=== PATIENT | male | born 1955 | race Caucasian/White ===

== ENCOUNTER → 2024-11-04 | Outpatient (CLI) | payer MEDICARE, SELFPAY ==
[2024-11-04 16:25] LABS: Bacteria 0 SEEN /hpf (None Seen); Mucous, Urine 0 SEEN /hpf (<or=2+); Squamous Epithelial Cells - UA 0 SEEN /hpf (0-5); White Blood Cells 0 SEEN /hpf (0-5)
[2024-11-04 17:58] LABS: Absolute Lymphocyte Count 2.93 X10^3/uL (0.83-4.51); Absolute Neutrophil Count 4.1 X10^3/uL (2.0-7.7); Basophil# 0.09 X10^3/uL; Basophil% 1.1 % (0-1); Eosinophil# 0.26 X10^3/uL; Eosinophils% 3.1 % (0-5); Hematocrit 46.4 % (40-54); Hemoglobin 15.3 g/dL (13.0-16.5); Lymphocyte # 2.93 X10^3/ul (0.83-4.51); Lymphocyte % 35.3 % (19-41); Mean Corpuscular Hgb 30.4 pg (27.0-32.0); Mean Corpuscular Volume 92.2 fL (80-94); Mean Platelet Vol. 9.7 fl (6.2-12.0); Monocyte% 9.6 % (0-10); NRBC Flagged by Analyzer 0 % (0-5); Neutrophil # 4.11 X10^3/uL (2.7-7.7); Neutrophil % 49.6 % (47-70); Platelet Count 258 K/mm3 (150-450); RBC Distribution Width CV 12.5 % (11.6-14.6); RBC Distribution Width SD 42.6 fl (35.1-43.9); Red Blood Count 5.03 M/mm3 (4.6-6.2); White Blood Count 8.3 K/mm3 (4.4-11.0)
[2024-11-04 18:30] LABS: Color, Urine Yellow (Yellow); Glucose, Dipstick Normal (Normal); Ketone-Dipstick Negative (Negative); Leukocyte Esterase-Dipstick 25 /ul (Negative); Nitrite-Dipstick Negative (Negative); Occult Blood-Urine Negative /ul (Negative); Protein-Dipstick Negative (Negative); Urine Bilirubin Dipstick Negative (Negative); Urine Clarity Clear (Clear); Urine Urobilinogen Normal (Normal)
[2024-11-04 18:49] LABS: ALB/GLOB Ratio 1.1 RATIO (0.9-2.4); AST(SGOT) 18 U/L (15-37); Alanine Aminotransfer ALT/SGPT 27 U/L (16-61); Albumin, Serum 3.7 g/dL (3.2-5.0); Alkaline Phosphatase 89 U/L (45-117); Anion Gap 9 (5-15); BUN 16 mg/dL (7-18); BUN/Creat Ratio 17.2 RATIO (10-20); Calcium,Total 8.5 mg/dL (8.5-10.1); Chloride 107 mmol/L (98-107); Cholesterol 173 mg/dL (200); Creatinine, Serum 0.93 mg/dL (0.70-1.30); EST Glomerular Filtration Rate 86 mL/min (>60); Est Glom Filt Rate - Afr Amer 104 mL/min (>60); Globulin 3.5 g/dL (2.2-4.2); Glucose 90 mg/dL (74-106); High Density Lipoprotein 32 mg/dL; Potassium 4.2 mmol/L (3.5-5.1); Protein, Total 7.2 g/dL (6.4-8.2); Sodium Level 139 mmol/L (136-145); Triglycerides 245 mg/dL; Very Low Density Lipoprotein 49 mg/dL (5-40)
[2024-11-04 18:54] LABS: Red Blood Cells-Urine 0 SEEN /hpf (0-5)
== END | disposition home or self-care (01) ==
PROVIDERS: PCP Family Medicine; Referring Provider Family Medicine; Visit Provider Family Medicine
DX: Z12.5 Encounter for screening for malignant neoplasm of prostate (principal); F17.200 Nicotine dependence, unspecified, uncomplicated; E78.5 Hyperlipidemia, unspecified
CPT/HCPCS: 36415; 80053; 80061; 81001; 84153; 85025; G0103

== ENCOUNTER 2025-04-15 05:51 | Day surgery (SDC) | payer MEDICARE, SELFPAY ==
[2025-04-10 08:22] LABS: Hematocrit 49.2 % (40-54); Hemoglobin 16.6 g/dL (13.0-16.5); Mean Corp Hgb Conc 33.7 g/dL (32-36); Mean Corpuscular Volume 92.1 fL (80-94); Mean Platelet Vol. 9.5 fl (6.2-12.0); Platelet Count 220 K/mm3 (150-450); RBC Distribution Width CV 13.2 % (11.6-14.6); RBC Distribution Width SD 45.0 fl (35.1-43.9); Red Blood Count 5.34 M/mm3 (4.6-6.2); White Blood Count 8.0 K/mm3 (4.4-11.0)
[2025-04-15] VITALS (9 sets, daily range): BP systolic 117–129; BP diastolic 78–88; PULSE 87–94; RESP 16–20; TEMP 36.2–36.7; O2SAT 93–97; BMI 24.5
--- OUTSIDE RECORDS SUMMARY | 2025-04-15 05:56 | XMS RPT_ITS | CCD ---
Author Organization 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 Damaso Bunch Primary Care Provider Loco MCCRAY, Dr. Damaso Bunch Referring Provider [phone] Torsten MCCRAY, Dr. Patrick Crowe Attending Provider Patrick Sarmiento Attending Unavailable Damaso Adan Primary Care Unavailable Damaso Adan Referring Unavailable Patrick Sarmiento Referring Unavailable Damaso Adan Primary Care Unavailable Patrick Sarmiento Attending Unavailable Damaso Adan Primary Care Unavailable Damaso Adan Attending Unavailable Damaso Adan Referring Unavailable Medications Current Medications Medication Drug Class(es) Dates Sig (Normalized) Sig (Original) aspirin 81 mg oral tablet (1 source) Platelet Aggregation Inhibitor, Nonsteroidal Anti-inflammatory Drug Start: 04-03-2025 take 1 tablet by mouth every other day Aspirin 81 mg tablet Active 81 mg PO .qod April 03, 2025 12:00am Vitamin B Complex tablet (1 source) Start: 04-03-2025 Vitamin B Complex tablet Active 1 {tbl} PO daily April 03, 2025 12:00am Problems Active Problems Problem Classification Problem Date Documented Da te Episodic/Chronic Abdominal hernia (3 sources) Umbilical hernia; Translations: [Umbilical hernia without obstruction or gangrene] Onset: 04-03-2025 04-03-2025 Episodic Past or Other Problems Problem Classification Problem Date Documented Da te Episodic/Chronic Other screening for suspected conditions (not mental disorders or infectious disease) (1 source) Encounter for screening for malignant neoplasm of prostate; Translations: [Encounter for screening for malignant neoplasm of prostate] Onset: 11-19-2024 Episodic Results Test Name Value Interpretation Reference Range Facil ity CBC-Complete Blood Cnt No Di ffon 04-10-2025 Erythrocyte distribution width (RBC) [Ratio] 13.2 % Normal 11.6-14.6 [facility] Comment on above: Performed By: #### L 100.0500 #### [facility] [address] [place], [address] Hematocrit (Bld) [Volume fraction] 49.2 % Normal 40-54 [facility] Comment on above: Performed By: #### L 100.0500 #### [facility] [address] [place], [address] Hemoglobin (Bld) [Mass/Vol] 16.6 g/dL High 13.0-16.5 [facility] Comment on above: Performed By: #### L 100.0500 #### [facility] [address] [place], [address] MCH (RBC) [Entitic mass] 31.1 pg Normal 27.0-32.0 [facility] Comment on above: Performed By: #### L 100.0500 #### [facility] [address] [place], [address] MCHC (RBC) [Mass/Vol] 33.7 g/dL Normal 32-36 [facility] Comment on above: Performed By: #### L 100.0500 #### [facility] [address] [place], [address] MCV (RBC) [Entitic vol] 92.1 fL Normal 80-94 [facility] Comment on above: Performed By: #### L 100.0500 #### [facility] [address] [place], [address] Platelet mean volume (Bld) [Entitic vol] 9.5 fL Normal 6.2-12.0 [facility] Comment on above: Performed By: #### L 100.0500 #### [facility] [address] [place], [address] Platelets (Bld) [#/Vol] 220 10*3/uL Normal 150-450 [facility] Comment on above: Performed By: #### L 100.0500 #### [facility] [address] [place], [address] RBC (Bld) [#/Vol] 5.34 10*6/uL Normal 4.6-6.2 [facility] Comment on above: Performed By: #### L 100.0500 #### [facility] [address] [place], [address] RDW SD 45.0 fl High 35.1-43.9 [facility] Comment on above: Performed By: #### L 100.0500 #### [facility] [address] [place], [address] WBC (Bld) [#/Vol] 8.0 10*3/uL Normal 4.4-11.0 [facility] Comment on above: Performed By: #### L 100.0500 #### [facility] [address] [place], [address] Surgery Visit Reporton 04-03 Surgery Visit Report [facility] [address] [place] [address] OFFICE VISIT Date of Service: 04/03/25 MR#: [id number] Acct: [id number] Name: SHANTELL CROSS Rep #: [id number] : 1955 Provider: Dr. Patrick butler MD Age/Sex: 69/M Location: [facility] Status: Signed Intake Vital Signs 04/03/25 08:23 Height 5 ft 8 in Weight: 164 lb BMI 24.9 BP 118/87 H Blood Pressure Location Rt brachial Position Sitting Respiration 17 Pulse 79 Pulse Source Monitor Pulse Oximetry (%) 96 Oxygen Delivery Method room air Intake Visit Reasons: UMBILICAL HERNIA Chief Complaint: umbilical hernia Is patient in pain?: Yes (ache at hernia site) Allergies No Known Allergies Allergy (Verified 04/03/25 08:24) Medications ???Medication ???Instructions ???Recorded ???Confirmed ???Type aspirin 81 mg tablet 81 mg PO .qod 04/03/25 04/03/25 Hi story vitamin B complex 1 tab PO QDAY 04/03/25 04/03/25 Hi story Have you fallen in the past year?: No PFSH Family History (Updated 04/03/25 @ 08:22 by Daija Burger) Father Hypertension Social History (Updated 04/03/25 @ 08:23 by Daija Burger) Smoking Status: Current every day smoker HPI HPI HPI: The patient is a 69-year-old male who is presenting today for evaluation of umbilical hernia. He states he has had this hernia for probably upwards of 10 years. He states that this is slowly increasing in size and causing him increasing discomfort. 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 He presents today to have this evaluated and to discuss repair ROS General General: No weight change, appetite, fatigue, colon cancer, breast cancer or weakness HEENT HEENT: No difficulty swallowing, eye injury, eye surgery, swollen glands or hoarseness Endo Endocrine: No thyroid disease, diabetes mellitus, thyroid cancer, Hair loss, heat intolerance or cold intolerance Skin Skin: No rash or changing moles Musc Musculoskeletal: No back problems, arthritis, rheumatoid arthritis, gout or joint pain Cardio Cardiovascular: No murmur, pacemaker, heart disease, atrial fibrillation, high blood pressure, heart attack, heart stent, palpitations, shortness of breath with exertion or chest pain Psych Psychiatric: No depression, anxiety or hearing voices Resp Respiratory: No shortness of breath, No sleep apnea, No cough, No COPD, No asthma, No emphysema and No wheezing Gastro Gastrointestinal: Yes abdominal pain, No nausea or vomiting, No diarrhea, No constipation, No blood in stool, No acid reflux, No hemorrhoids, No ulcers, No gallbladder problem and No black,tarry s tools Heri Hematologic: No blood thinners, No blood disorders, No bleeding, No anemia and No blood clots Neuro Neurologic: No system reviewed and no additional complaints, except as documented, No as per HPI, No abnormal gait, No abnormal hearing, No abnormal movements, No abnormal speech, No behavioral changes, No burning sensations, No confusion, No convulsions, No disequilibrium, No dizziness, No localized weakness, No frequent falls, No headache(s), No lack of coordination, No loss of vision, No memory loss, No numbness, No other visual disturbances, No radicular pain, No restless legs, No sensory deficit, No syncope, No tingling, No tremor(s), No weakness and No other Exam Const General: cooperative, healthy appearing and comfortable [facility] Head: normal to inspection Eyes General: appearance normal, both eyes and all related structures Neck Neck: normal visual inspection Chest Chest palpation inspection: normal inspection of the chest Resp Effort Inspection: normal respiratory effort GI Other: Examination of the abdomen reveals a small to medium size umbilical hernia. This seems to be fat- containing. It is not fully reducible and so I cannot really determine exact fascial defect size. I suspect it is probably less than 2 cm but again I cannot fully assess due to the nonreducible nature of it. No surrounding erythema or cellulitis. No evidence to suggest strangulation/incarc eration Assessment and Plan Assessment and Plan (1) Umbilical hernia: Status: Acute Plan: The patient is a 69-year-old male with an umbilical hernia. I have offered him an open repair with possible mesh based on the fascial defect size. We discussed the details of the planned procedure including risks benefits and alternatives. He wishes to proceed. This will be scheduled in a timely manner. Coding Level of Care Code Off vis,new,level 4 Diagnoses Umbilical hernia K42.9 Clinical Quality Measures Falls Risk Screening/Assistive Devices Have you fallen in the past year?: No 04/03/25 0900 Date (more content not included)... Normal [facility] CBC W/Diff, Automatedon 10-25 Absolute Lymph 2.93 X10 3/uL Normal 0.83-4.51 [facility] Comment on above: Order Comment: Order Date: 11/04/24 Order Info: 0184-1 - CBCD Performed By: #### L 500.6010, L100.0100, L501.9910, L500.4050 #### [facility] [address] [place], [address] Absolute Neut 4.1 X10 3/uL Normal 2.0-7.7 [facility] Comment on above: Order Comment: Order Date: 11/04/24 Order Info: 0184-1 - CBCD Performed By: #### L 500.4100, L100.0100, L501.9910, L500.4050 #### [facility] [address] [place], [address] Basophils/100 WBC (Bld) 1.1 % High 0-1 [facility] Comment on above: Order Comment: Order Date: 11/04/24 Order Info: 0184-1 - CBCD Performed By: #### L 500.4100, L100.0100, L501.9910, L500.4050 #### [facility] [address] [place], [address] Eosinophils/100 WBC (Bld) 3.1 % Normal 0-5 [facility] Comment on above: Order Comment: Order Date: 11/04/24 Order Info: 0184-1 - CBCD Performed By: #### L 500.4100, L100.0100, L501.9910, L500.4050 #### [facility] [address] [place], [address] Erythrocyte distribution width (RBC) [Ratio] 12.5 % Normal 11.6-14.6 [facility] Comment on above: Order Comment: Order Date: 11/04/24 Order Info: 0184-1 - CBCD Performed By: #### L 500.4100, L100.0100, L501.9910, L500.4050 #### [facility] [address] [place], [address] Hematocrit (Bld) [Volume fraction] 46.4 % Normal 40-54 [facility] Comment on above: Order Comment: Order Date: 11/04/24 Order Info: 0184-1 - CBCD Performed By: #### L 500.4100, L100.0100, L501.9910, L500.4050 #### [facility] [address] [place], [address] Hemoglobin (Bld) [Mass/Vol] 15.3 g/dL Normal 13.0-16.5 [facility] Comment on above: Order Comment: Order Date: 11/04/24 Order Info: 0184-1 - CBCD Performed By: #### L 500.4100, L100.0100, L501.9910, L500.4050 #### [facility] [address] [place], [address] IG% 1.300 High 0.0-0.9 [facility] Comment on above: Order Comment: Order Date: 11/04/24 Order Info: 0184- - CBCD Result Comment: IG% - Immature Granulocytes (promyelocytes, myelocytes and metamyelocytes) > 1% indicates that a LEFT SHIFT is Present. Performed By: #### L 500.4100, L100.0100, L501.9910, L500.4050 #### [facility] [address] [place], [address] Lymphocytes/100 WBC (Bld) 35.3 % Normal 19-41 [facility] Comment on above: Order Comment: Order Date: 11/04/24 Order Info: 0184-1 - CBCD Performed By: #### L 500.4100, L100.0100, L501.9910, L500.4050 #### [facility] [address] [place], [address] MCH (RBC) [Entitic mass] 30.4 pg Normal 27.0-32.0 [facility] Comment on above: Order Comment: Order Date: 11/04/24 Order Info: 0184-1 - CBCD Performed By: #### L 500.4100, L100.0100, L501.9910, L500.4050 #### [facility] [address] [place], [address] MCHC (RBC) [Mass/Vol] 33.0 g/dL Normal 32-36 [facility] Comment on above: Order Comment: Order Date: 11/04/24 Order Info: 0184-1 - CBCD Performed By: #### L 500.4100, L100.0100, L501.9910, L500.4050 #### [facility] [address] [place], [address] MCV (RBC) [Entitic vol] 92.2 fL Normal 80-94 [facility] Comment on above: Order Comment: Order Date: 11/04/24 Order Info: 0184-1 - CBCD Performed By: #### L 500.4100, L100.0100, L501.9910, L500.4050 #### [facility] [address] [place], [address] Monocytes/100 WBC (Bld) 9.6 % Normal 0-10 [facility] Comment on above: Order Comment: Order Date: 11/04/24 Order Info: 0184-1 - CBCD Performed By: #### L 500.4100, L100.0100, L501.9910, L500.4050 #### [facility] [address] [place], [address] Neutrophils/100 WBC (Bld) 49.6 % Normal 47-70 [facility] Comment on above: Order Comment: Order Date: 11/04/24 Order Info: 0184-1 - CBCD Performed By: #### L 500.4100, L100.0100, L501.9910, L500.4050 #### [facility] [address] [place], [address] Nucleated RBC (Bld) [#/Vol] 0 10*3/uL Normal 0-5 [facility] Comment on above: Order Comment: Order Date: 11/04/24 Order Info: 0184-1 - CBCD Performed By: #### L 500.4100, L100.0100, L501.9910, L500.4050 #### [facility] [address] [place], [address] Platelet mean volume (Bld) [Entitic vol] 9.7 fL Normal 6.2-12.0 [facility] Comment on above: Order Comment: Order Date: 11/04/24 Order Info: 0184-1 - CBCD Performed By: #### L 500.4100, L100.0100, L501.9910, L500.4050 #### [facility] [address] [place], [address] Platelets (Bld) [#/Vol] 258 10*3/uL Normal 150-450 [facility] Comment on above: Order Comment: Order Date: 11/04/24 Order Info: 0184- - CBCD Performed By: #### L 500.4100, L100.0100, L501.9910, L500.4050 #### [facility] [address] [place], [address] RBC (Bld) [#/Vol] 5.03 10*6/uL Normal 4.6-6.2 [facility] Comment on above: Order Comment: Order Date: 11/04/24 Order Info: 0184- - CBCD Performed By: #### L 500.4100, L100.0100, L501.9910, L500.4050 #### [facility] [address] [place], [address] RDW SD 42.6 fl Normal 35.1-43.9 [facility] Comment on above: Order Comment: Order Date: 11/04/24 Order Info: 0184-1 - CBCD Performed By: #### L 500.4100, L100.0100, L501.9910, L500.4050 #### [facility] [address] [place], [address] WBC (Bld) [#/Vol] 8.3 10*3/uL Normal 4.4-11.0 [facility] Comment on above: Order Comment: Order Date: 11/04/24 Order Info: 0184-1 - CBCD Performed By: #### L 500.4100, L100.0100, L501.9910, L500.4050 #### [facility] [address] [place], [address] Comprehensive Metabolic Prof ilon 11-04-2024 Albumin [Mass/Vol] 3.7 g/dL Normal 3.2-5.0 [facility] Comment on above: Order Comment: Order Date: 11/04/24 Order Info: [id number] - CMP Order Info: [id number] - LIPID Order Info: [id number] - PSA Performed By: #### L 500.4100, L100.0100, L501.9910, L500.4050 #### [facility] [address] [place], [address] Albumin/Globulin [Mass ratio] 1.1 {ratio} Normal 0.9-2.4 [facility] Comment on above: Order Comment: Order Date: 11/04/24 Order Info: [id number] - CMP Order Info: [id number] - LIPID Order Info: [id number] - PSA Performed By: #### L 500.4100, L100.0100, L501.9910, L500.4050 #### [facility] [address] [place], [address] ALK P 89 U/L Normal 45-117 [facility] Comment on above: Order Comment: Order Date: 11/04/24 Order Info: [id number] - CMP Order Info: [id number] - LIPID Order Info: [id number] - PSA Performed By: #### L 500.4100, L100.0100, L501.9910, L500.4050 #### [facility] [address] [place], [address] ALT [Catalytic activity/Vol] 27 U/L Normal 16-61 [facility] Comment on above: Order Comment: Order Date: 11/04/24 Order Info: [id number] - CMP Order Info: - LIPID Order Info: [id number] - PSA Performed By: #### L 500.4100, L100.0100, L501.9910, L500.4050 #### [facility] [address] [place], [address] AST [Catalytic activity/Vol] 18 U/L Normal 15-37 [facility] Comment on above: Order Comment: Order Date: 11/04/24 Order Info: [id number] - CMP Order Info: - LIPID Order Info: [id number] - PSA Performed By: #### L 500.4100, L100.0100, L501.9910, L500.4050 #### [facility] [address] [place], [address] Bilirubin [Mass/Vol] 0.40 mg/dL Normal 0.20-1.00 [facility] Comment on above: Order Comment: Order Date: 11/04/24 Order Info: [id number] - CMP Order Info: - LIPID Order Info: [id number] - PSA Result Comment: For patients on eltrombopag therapy, use of Dimension [place] TBIL is not recommended. Performed By: #### L 500.4100, L100.0100, L501.9910, L500.4050 #### [facility] [address] [place], [address] BUN/CRE 17.2 RATIO Normal 10-20 [facility] Comment on above: Order Comment: Order Date: 11/04/24 Order Info: [id number] - CMP Order Info: - LIPID Order Info: [id number] - PSA Performed By: #### L 500.4100, L100.0100, L501.9910, L500.4050 #### [facility] [address] [place], [address] CA,Total 8.5 mg/dL Normal 8.5-10.1 [facility] Comment on above: Order Comment: Order Date: 11/04/24 Order Info: 0786- - CMP Order Info: [id number] - LIPID Order Info: [id number] - PSA Performed By: #### L 500.4100, L100.0100, L501.9910, L500.4050 #### [facility] [address] [place], [address] Chloride [Moles/Vol] 107 mmol/L Normal 98-107 [facility] Comment on above: Order Comment: Order Date: 11/04/24 Order Info: 0786 - CMP Order Info: [id number] - LIPID Order Info: [id number] - PSA Performed By: #### L 500.4100, L100.0100, L501.9910, L500.4050 #### [facility] [address] [place], [address] CO2 [Moles/Vol] 23.0 mmol/L Normal 21.0-32.0 [facility] Comment on above: Order Comment: Order Date: 11/04/24 Order Info: 0786 - CMP Order Info: [id number] - LIPID Order Info: [id number] - PSA Performed By: #### L 500.4100, L100.0100, L501.9910, L500.4050 #### [facility] [address] [place], [address] Creatinine [Mass/Vol] 0.93 mg/dL Normal 0.70-1.30 [facility] Comment on above: Order Comment: Order Date: 11/04/24 Order Info: 0786- - CMP Order Info: [id number] - LIPID Order Info: [id number] - PSA Result Comment: The validity of the calculated GFR GFRAA in patients over 70 years has not been determined. Clinical correlation is essential. Performed By: #### L 500.4100, L100.0100, L501.9910, L500.4050 #### [facility] [address] [place], [address] EST GFR - AA 104 mL/min Normal >60 [facility] Comment on above: Order Comment: Order Date: 11/04/24 Order Info: [id number] - CMP Order Info: - LIPID Order Info: [id number] - PSA Result Comment: Afri can [place] GFR Calc Performed By: #### L 500.4100, L100.0100, L501.9910, L500.4050 #### [facility] [address] [place], [address] GAP 9 Normal 5-15 [facility] Comment on above: Order Comment: Order Date: 11/04/24 Order Info: [id number] - CMP Order Info: - LIPID Order Info: [id number] - PSA Performed By: #### L 500.4100, L100.0100, L501.9910, L500.4050 #### [facility] [address] [place], [address] GFR/1.73 sq M.predicted among non-blacks MDRD (S/P/Bld) [Vol rate/Area] 86 mL/min/{1.73_m2} Normal >60 [facility] Comment on above: Order Comment: Order Date: 11/04/24 Order Info: [id number] - CMP Order Info: - LIPID Order Info: [id number] - PSA Result Comment: Non- GFR Calc Performed By: #### L 500.4100, L100.0100, L501.9910, L500.4050 #### [facility] [address] [place], [address] Globulin (S) [Mass/Vol] 3.5 g/dL Normal 2.2-4.2 [facility] Comment on above: Order Comment: Order Date: 11/04/24 Order Info: [id number] - CMP Order Info: - LIPID Order Info: [id number] - PSA Performed By: #### L 500.4100, L100.0100, L501.9910, L500.4050 #### [facility] [address] [place], [address] Glucose [Mass/Vol] 90 mg/dL Normal 74-106 [facility] Comment on above: Order Comment: Order Date: 11/04/24 Order Info: [id number] - CMP Order Info: [id number] - LIPID Order Info: [id number] - PSA Performed By: #### L 500.4100, L100.0100, L501.9910, L500.4050 #### [facility] [address] [place], [address] Potassium [Moles/Vol] 4.2 mmol/L Normal 3.5-5.1 [facility] Comment on above: Order Comment: Order Date: 11/04/24 Order Info: [id number] - CMP Order Info: [id number] - LIPID Order Info: [id number] - PSA Performed By: #### L 500.4100, L100.0100, L501.9910, L500.4050 #### [facility] [address] [place], [address] Sodium [Moles/Vol] 139 mmol/L Normal 136-145 [facility] Comment on above: Order Comment: Order Date: 11/04/24 Order Info: 0786 - CMP Order Info: [id number] - LIPID Order Info: [id number] - PSA Performed By: #### L 500.4100, L100.0100, L501.9910, L500.4050 #### [facility] [address] [place], [address] T PROT 7.2 g/dL Normal 6.4-8.2 [facility] Comment on above: Order Comment: Order Date: 11/04/24 Order Info: 0786- - CMP Order Info: [id number] - LIPID Order Info: [id number] - PSA Performed By: #### L 500.4100, L100.0100, L501.9910, L500.4050 #### [facility] [address] [place], [address] Urea nitrogen [Mass/Vol] 16 mg/dL Normal 7-18 [facility] Comment on above: Order Comment: Order Date: 11/04/24 Order Info: [id number] - CMP Order Info: [id number] - LIPID Order Info: [id number] - PSA Performed By: #### L 500.4100, L100.0100, L501.9910, L500.4050 #### [facility] [address] [place], [address] Lipid Profileon 11-04-2024 Cholesterol [Mass/Vol] 173 mg/dL Normal 200 [facility] Comment on above: Order Comment: Order Date: 11/04/24 Order Info: 0786 - CMP Order Info: [id number] - LIPID Order Info: [id number] - PSA Result Comment: <200 mg/dL Desirable 200-240 mg/dL Borderline >240 mg/dL High Risk Performed By: #### L 500.4100, L100.0100, L501.9910, L500.4050 #### [facility] [address] [place], [address] Cholesterol in HDL [Mass/Vol] 32 mg/dL Low [facility] Comment on above: Order Comment: Order Date: 11/04/24 Order Info: 0786- - CMP Order Info: [id number] - LIPID Order Info: [id number] - PSA Result Comment: The drugs N-Acetylcysteine and Metamizole may falsely depress this assay. Reference Range HDL <40 mg/dL Low HDL Cholesterol HDL >or= 60 mg/dL High HDL Cholesterol Performed By: #### L 500.4100, L100.0100, L501.9910, L500.4050 #### [facility] [address] [place], [address] Cholesterol in LDL [Mass/Vol] 92 mg/dL Normal 0-130 [facility] Comment on above: Order Comment: Order Date: 11/04/24 Order Info: [id number] - CMP Order Info: - LIPID Order Info: [id number] - PSA Performed By: #### L 500.4100, L100.0100, L501.9910, L500.4050 #### [facility] [address] [place], [address] Cholesterol in VLDL [Mass/Vol] 49 mg/dL High 5-40 [facility] Comment on above: Order Comment: Order Date: 11/04/24 Order Info: [id number] - CMP Order Info: - LIPID Order Info: [id number] - PSA Performed By: #### L 500.4100, L100.0100, L501.9910, L500.4050 #### [facility] [address] [place], [address] Triglyceride [Mass/Vol] 245 mg/dL High [facility] Comment on above: Order Comment: Order Date: 11/04/24 Order Info: [id number] - CMP Order Info: - LIPID Order Info: [id number] - PSA Result Comment: The drugs N-Acetylcysteine and Metamizole may falsely depress this assay. Serum Triglycerides Reference Interval Normal <150 mg/dL Borderline high 150 - 199 mg/dL High 200 - 499 mg/dL Very High > or = 500 mg/dL Performed By: #### L 500.4100, L100.0100, L501.9910, L500.4050 #### [facility] [address] [place], [address] PSA,Total - Annual Screenon 11-04-2024 PSA,TOT SCREEN 34.00 ng/mL High 0.00-4.00 [facility] Comment on above: Order Comment: Order Date: 11/04/24 Order Info: 07 - CMP Order Info: - LIPID Order Info: [id number] - PSA Result Comment: This test was performed using the TPSA assay method for the [employer] chemistry system. Values obtained with different assay methods cannot be used interchangably. When changing PSA assays in the course of monitoring a patient, additional sequential testing should be carried out to confirm baseline values. Performed By: #### L 500.4100, L100.0100, L501.9910, L500.4050 #### [facility] [address] [place], [address] Urinalysis, Completeon 11-04 RBC 0 SEEN Normal 0-5 [facility] Comment on above: Order Comment: CLEAN CATCH Performed By: #### L [id number] #### [facility] [address] [place], [address] BACTERIA 0 SEEN Normal None [facility]en [facility] Comment on above: Order Comment: CLEAN CATCH Performed By: #### L [id number] #### [facility] [address] [place], [address] EPI,SQUAMOUS 0 SEEN Normal 0-5 [facility] Comment on above: Order Comment: CLEAN CATCH Performed By: #### L [id number] #### [facility] [address] [place], [address] Mucus Ql (Urine sed) 0 SEEN Normal [facility] Comment on above: Order Comment: CLEAN CATCH Performed By: #### L [id number] #### [facility] [address] [place], [address] WBC 0 SEEN Normal 0-5 [facility] Comment on above: Order Comment: CLEAN CATCH Performed By: #### L [id number] #### [facility] [address] [place], [address] Vital Signs Date Time Vital Sign Value Performing Clinician Andrews sutton 04-03-2025 08:23-0400 Body height 172.[address] Damaso Adan MD Work Phone: [facility] 04-03-2025 08:23-0400 Body mass index (BMI) [Ratio] 24.9 kg/m2 Dr. Damaso Adan MD Work Phone: [facility] 04-03-2025 08:23-0400 Body weight 74.[address] Damaso Adan MD Work Phone: [facility] 04-03-2025 08:23-0400 Diastolic blood pressure 87 mm[Hg] Dr. Damaso Adan MD Work Phone: [facility] 04-03-2025 08:23-0400 Heart rate 79 /min Dr. Damaso Adan MD Work Phone: [facility] 04-03-2025 08:23-0400 Respiratory rate 17 /min Dr. Damaso Adan MD Work Phone: [facility] 04-03-2025 08:23-0400 SaO2% (BldA) [Mass fraction] 96 % Dr. Damaso Adan MD Work Phone: [facility] 04-03-2025 08:23-0400 Systolic blood pressure 118 mm[Hg] Dr. Damaso Adan MD Work Phone: [facility] Encounters Encounter Date Encounter Type Care Provider Facility Start: 04-15-2025 [facility] Start: 04-10-2025 Encounter for other preprocedural examination Patrick Sebastien [facility] Start: 04-03-2025 End: 04-03-[address] Patrick Sarmiento MD -[facility] Work Phone: Start: 04-03-2025 End: 04-03-[address] Damaso Adan MD Work Phone: -[facility] Start: 11-04-2024 End: 11-04-2024 ambulatory Damaso Adan Facility[facility] Payers Date Payer Category Payer Medicare [id number] 2024 Self-pay Unknown [id number] Unknown [id number] Unknown [id number] Unknown [id number] Social History Date Type Detail Facility Start: 04-03-2025 Tobacco smoking stat us [facility] Smokes tobacco daily (finding) [facility] Start: 1955 Sex Assigned At Male [facility] Progress note 04-03-2025 Note Date & Type Note Facility 04-03-2025 Progress note [facility] Progress note 04-03-2025 Note Date & Type Note Facility 04-03-2025 Progress note Note Date/Time April 03, 2025 9:00 am [facility] [address] [place] [address] OFFICE VISIT Date of Service: 04/03/25 MR#: [id number] Acct: [id number] Name: SHANTELL CROSS Rep #: [id number] : 1955 Provider: Dr. Vasu Sarmiento MD Age/Sex: 69/M Location: [facility] Status: Signed Intake Vital Signs 04/03/25 08:23 Height 5 ft 8 in Weight: 164 lb BMI 24.9 BP 118/87 H Blood Pressure Location Rt brachial Position Sitting Respiration 17 Pulse 79 Pulse Source Monitor Pulse Oximetry (%) 96 Oxygen Delivery Method room air Intake Visit Reasons: UMBILICAL HERNIA Chief Complaint: umbilical hernia Is patient in pain?: Yes (ache at hernia site) Allergies No Known Allergies Allergy (Verified 04/03/25 08:24) Medications ?Medication ?Instructions ?Recorded ?Confirmed ?Type aspirin 81 mg tablet 81 mg PO .qod 04/03/2504/03 History vitamin B complex 1 tab PO QDAY 04/03/2504/03 History Have you fallen in the past year?: No PFSH Family History (Updated 04/03/25 @ 08:22 by Daija Burger) Father Hypertension Social History (Updated 04/03/25 @ 08:23 by Daija Burger) Smoking Status: Current every day smoker HPI HPI HPI: The patient is a 69-year-old male who is presenting today for evaluation of umbilical hernia. He states he has had this hernia for probably upwards of 10 years. He states that this is slowly increasing in size and causing him increasing discomfort. 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 He presents today to have this evaluated and to discuss repair ROS General General: No weight change, appetite, fatigue, colon cancer, breast cancer or weakness HEENT HEENT: No difficulty swallowing, eye injury, eye surgery, swollen glands or hoarseness Endo Endocrine: No thyroid disease, diabetes mellitus, thyroid cancer, Hair loss, heat intolerance or cold intolerance Skin Skin: No rash or changing moles Musc Musculoskeletal: No back problems, arthritis, rheumatoid arthritis, gout or joint pain Cardio Cardiovascular: No murmur, pacemaker, heart disease, atrial fibrillation, high blood pressure, heart attack, heart stent, palpitations, shortness of breath with exertion or chest pain Psych Psychiatric: No depression, anxiety or hearing voices Resp Respiratory: No shortness of breath, No sleep apnea, No cough, No COPD, No asthma, No emphysema and No wheezing Gastro Gastrointestinal: Yes abdominal pain, No nausea or vomiting, No diarrhea, No constipation, No blood in stool, No acid reflux, No hemorrhoids, No ulcers, No gallbladder problem and No black,tarry stools Heri Hematologic: No blood thinners, No blood disorders, No bleeding, No anemia and No blood clots Neuro Neurologic: No system reviewed and no additional complaints, except as documented, No as per HPI, No abnormal gait, No abnormal hearing, No abnormal movements, No abnormal speech, No behavioral changes, No burning sensations, No confusion, No convulsions, No disequilibrium, No dizziness, No localized weakness, No frequent falls, No headache(s), No lack of coordination, No loss ofvision, No memory loss, No numbness, No other visual disturbances, No radicular pain, No restless legs, No sensory deficit, No syncope, No tingling, No tremor(s), No weakness and No other Exam Const General: cooperative, healthy appearing and comfortable [facility] Head: normal to inspection Eyes General: appearance normal, both eyes and all related structures Neck Neck: normal visual inspection Chest Chest palpation & inspection: normal inspection of the chest Resp Effort & Inspection: normal respiratory effort GI Other: Examination of the abdomen reveals a small to medium size umbilical hernia. This seems to be fat-containing. It is not fully reducible and so I cannot really determine exact fascial defect size. I suspect it is probably less than 2 cm but again I cannot fully assess due to the nonreducible nature of it. No surrounding erythema or cellulitis. No evidence to suggest strangulation/incarceration Assessment and Plan Assessment and Plan (1) Umbilical hernia: Status: Acute Plan: The patient is a 69-year-old male with an umbilical hernia. I have offered him an open repair with possible mesh based on the fascial defect size. We discussed the details of the planned procedure including risks benefits and alternatives. He wishes to proceed. This will be scheduled in a timely manner. Coding Level of Care Code Off vis,new,level 4 Diagnoses Umbilical hernia K42.9 Clinical Quality Measures Falls Risk Screening/Assistive Devices Have you fallen in the past year?: No 04/03/25 0900 <Electronically signed by Patrick song MD> Date _ Patrick Sarmiento MD Cosigner Signature: Date (if applicable) CC: Dr. Damaso Adan MD ~ [facility] Work Phone: Evaluation note Note Date & Type Note Facility Evaluation note Diagnosis Onset Date Resolution Umbilical hernia acute March 8:12am [facility] Work Phone: Reason for referral (narrative) Note Date & Type Note Facility Reason for referral (narrative) No reason for referral information available [facility] Work Phone: Chief Complaint and Reason for Visit Chief Complaint Admit Date UMBILICAL HERNIA April 03, 2025 8:12 am Reason for Visit Admit Date Umbilical hernia April 03, 2025 8:12 am Summary Purpose Family History No Family History Records Found Advance Directives No Advanced Directives Records Found Additional Source Comments Care Teams (unrecognized sec tion and content) Team Status: Active Member Role/Relationship Status Dates Dr. Damaso Adan MD Primary Care Provider Active Team Status: Inactive Member Role/Relationship Status Dates Dr. Damaso Adan MD Primary Care Provider Active Start: April 03, 2025 End: April 03, 2025 Dr. Damaso Adan MD Referring Provider Active Start: April 03, 2025 End: April 03, 2025 Dr. Patrick Sarmiento MD Attending Provider Active Start: April 03, 2025 End: April 03, 2025 Goals (unrecognized section and content) Goals may be documented in a n alternate section (unrecognized sect ion and content) No Status Records Found INFORMATION SOURCE (unrecogn ized section and content) DATE CREATED AUTHOR 04/13/2025 [facility] FOR RECORDS PERTAINING TO PATIENTS WHO ARE OR HAVE BEEN ENROLLED IN A CHEMICAL DEPENDENCY/SUBSTANCEABUSE PROGRAM, SOME INFORMATION MAY BE OMITTED. This clinical summary was aggregated from multiple sources. Caution should be exercised in using it in the provision of clinical care. This summary normalizes information from multiple sources, and as a consequence, information in this document may materially change the coding, format and clinical context of patient data. In addition, data may be omitted in some cases. CLINICAL DECISIONS SHOULD BE BASED ON THE PRIMARY CLINICAL RECORDS. [employer] provides no warranty or guarantee of the accuracy or completeness of information in this document.
[2025-04-15] MEDS: Lactated Ringers 1,000 ML 15 ML IV (06:37)
--- NOTE | 2025-04-15 07:21 | PCM.PRE.AN2 ---
ASA Classification* ASA Classification ASA Classification: 2 Assessment & Plan Anesthesia* Anesthesia Assessment Anesthesia Assessment: Discussed sedation and/or anesthesia options, risks, benefits, and alternatives with patient/parents/legal guardian/POA. Questions invited. The patient/parents/legal guardian/POA seems to understand and agrees to proceed with anesthesia plan. Reviewed the physical assessment, medical history, allergy history and patient home medications list prior to surgery/procedure/anesthetic and documented any changes. Performed airway and anesthesia risk assessments. Anesthesia Type Anesthesia Type: General History Source History Obtained from:: Patient and Chart Anesthesia Focused Assessment* Temperature: 98.0 F Pulse Rate: 87 Blood Pressure: 124/82 Respiratory Rate: 16 Pulse Ox: 97 Oxygen Delivery Method: Room Air Airway Assessment Mouth opens: >3 cm Mallampati Score: II Teeth Condition: Partial (Upper partials out. Rest are tight.) Neck Range of motion (ROM): Full ROM Labs Anesthesia Preop lab: CBC WBC 8.0 K/mm3 (4.4-11.0) 04/10/25 07:33 04/10/25 RBC 5.34 M/mm3 (4.6-6.2) 04/10/25 07:33 04/10/25 Hgb 16.6 g/dL (13.0-16.5) H 04/10/25 07:33 04/10/25 Hct 49.2 % (40-54) 04/10/25 07:33 04/10/25 Plt Count 220 K/mm3 (150-450) 04/10/25 07:33 04/10/25 CHEMISTRY Potassium 4.2 mmol/L (3.5-5.1) 11/04/24 15:54 11/04/24 Sodium 139 mmol/L (136-145) 11/04/24 15:54 11/04/24 BUN 16 mg/dL (7-18) 11/04/24 15:54 11/04/24 Creatinine 0.93 mg/dL (0.70-1.30) 11/04/24 15:54 11/04/24 Glucose 90 mg/dL (74-106) 11/04/24 15:54 11/04/24 COAG Pre-Assessment Diagnosis/Proposed Procedure Planned Operative Procedure(s): OPEN UMBILICAL HERNIA REPAIR POSS MESH Anesthesia History 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 When Was Last Pacemaker Check QUESTION #4 FULL TEXT: You/Your Family Experience fever (hyperthermia) with Anesthesia Last Oral Intake Last Oral intake: Last Oral Intake NPO since 18:00 04/15/25 06:25 Meds taken in AM with sips of No 04/15/25 06:25 water? Meds patient instructed to take am of surgery PONV PONV - turpentine farmer: PONV - turpentine farmer Female No 04/08/25 10:17 HX of Motion Sickness No 04/08/25 10:17 HX of N/V After Surgery No 04/08/25 10:17 Non-Smoker No 04/08/25 10:17 Duration of Surgery greater Yes 04/08/25 10:17 than 60 minutes Number of Risk Factors 1 04/08/25 10:17 PONV Score Low Risk 04/08/25 10:17 Height & Weight Height & Weight: Anesthesia: Height & Weight Height 5 ft 8 in 04/15/25 06:25 Weight: 73 kg 04/15/25 06:25 Body Mass Index (BMI) 24.5 04/15/25 06:25 Respiratory Assessment Respiratory Assessment - turpentine farmer: Respiratory Tract Infection Hx - turpentine farmer Hx Respiratory Tract Infection No 04/08/25 10:17 STOP Sleep Apnea STOP Sleep Apnea - turpentine farmer: STOP Sleep Apnea - turpentine farmer Hx Hypertension No 04/08/25 10:17 Hx Sleep Apnea No 04/08/25 10:17 CPAP BIPAP Do you snore loudly (louder Yes 04/08/25 10:17 than talking or can be heard Do you often feel tired/ No 04/08/25 10:17 fatigued/ sleepy during daytime? Has anyone observed you stop No 04/08/25 10:17 breathing during sleep? STOP Results Negative 04/08/25 10:17 QUESTION #5 FULL TEXT : Do you snore loudly (louder than talking or can be heard through closed doors)? 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 Specify any problems Hx of Preganancy in last 3 N/A 04/08/25 10:17 Months Nurse Filling Out Transfusion DSCHRIBER 04/08/25 10:17 & Questions: Date: 04/08/25 04/08/25 10:17 Time: 10:18 04/08/25 10:17 Patient unable to answer at this time (ie. confused, unrespo /Reproduction History /Reproductive History - turpentine farmer: /Reproductive Hx- turpentine farmer Hx Now No 04/08/25 10:17 Gestational Age (in weeks): EDC: Hx Hx Para Hx Section SAB No 04/08/25 10:17 Active Medications Active Medications: Current Medications Generic Name Dose Route Start Last Admin Trade Name Freq PRN Reason Stop Dose Admin Cefazolin Sodium 2 gm/ Sodium 110 mls @ 200 mls/hr 04/15/25 07:30 Chloride IV 04/15/25 08:02 INTRAOP ONE Lactated Ringer's 1,000 mls @ 15 mls/hr 04/15/25 06:00 04/15/25 06:37 IV 15 mls/hr .Q48H LUNA Administration PFSH Medical History Wears glasses Wears partial dentures Restless legs History of ulceration Heartburn Smoker Hx of closed fracture of nasal bones Home Medications ?Medication ?Instructions ?Recorded ?Last Taken ?Type aspirin 81 mg tablet 81 mg PO .qod 04/03/25 04/14/25 History vitamin B complex 1 tab PO QWEEK 04/03/25 04/13/25 History Allergy/AdvReac Type Severity Reaction Status Date / Time No Known Allergies Allergy Verified 04/15/25 06:24 Family History Father Hypertension Surgical History (Updated 04/15/25 @ 07:[address] Serafin Portillo MD) Nasal bone fx-closed Social History Smoking Status: Current every day smoker tobacco type: cigarettes Review of Systems (Anesthesia) ROS Narrative System reviewed and no additional complaints, except as documented.
--- NOTE | 2025-04-15 07:31 | HP.PCM_ITS ---
HPI - General General Date of Admission: 04/15/25 Date of Service: 04/15/25 Chief Complaint: umbilical hernia HPI Narrative SHANTELL CROSS, is a 69 M who presents for elective umbilical hernia repair with possible mesh. Patient was recently seen in the office for this hernia and I offered him surgery. He wished to proceed [facility] Medical History (Updated 04/15/25 @ 07:[address] Serafin Portillo MD) Wears glasses Wears partial dentures Restless legs History of ulceration Heartburn Smoker Hx of closed fracture of nasal bones Home Medications ?Medication ?Instructions ?Recorded ?Last Taken ?Type aspirin 81 mg tablet 81 mg PO .qod 04/03/2504/14 History vitamin B complex 1 tab PO QWEEK 04/03/2503/25 History Allergy/AdvReac Type Severity Reaction Status Date / Time No Known Allergies Allergy Verified 04/15/25 06:24 Family History Father Hypertension Surgical History (Updated 04/15/25 @ 07:[address] Serafin Portillo MD) Nasal bone fx-closed Social History Smoking Status: Current every day smoker (Patient smoked today.) tobacco type: cigarettes ROS Constitutional Constitutional: Reports systems reviewed and no addt'l complaints, except as documented Eyes Eyes: Reports systems reviewed and no addt'l complaints, except as documented ENT HEENT: Reports systems reviewed and no addt'l complaints, except as documented Cardiovascular Cardiovascular: Reports systems reviewed and no addt'l complaints, except as documented Vital Signs Vital Signs Vital Signs: 04/15/25 06:25 04/15/25 06:25 04/15/25 07:27 Temperature 98.0 F 98.0 F Temperature Source Temporal Pulse Rate 87 87 Respiratory Rate 16 16 Respiratory Pattern Normal Blood Pressure 124/82 H 124/82 H Blood Pressure Mean 96 Blood Pressure Source Monitor Blood Pressure Position Semi-Fowlers Blood Pressure Location Left Arm Pulse Ox 97 97 Oxygen Delivery Method Room Air Room Air Weight Weight: 160 lb 14.999 oz Body Mass Index (BMI) 24.5 Physical Exam Const alert, oriented x3 and no apparent distress Results Lab / Micro Data 04/10/25 07:33 Assessment & Plan Assessment/Plan (1) Umbilical hernia: PLAN: Plan The patient is a 69-year-old male with an umbilical hernia. I have recommended umbilical hernia repair with possible mesh. We discussed the details of the planned procedure including risk benefits alternatives he wishes to proceed. Surgery began momentarily Charges/Coding Visit Charges Inpatient E&M: 97046 Init Hosp L2
--- NOTE | 2025-04-15 08:15 | DCINST_ITS ---
Discharge Instructions Diet Discharge Diet: Light diet - advance as tolerated Activity Discharge Activity: Return to Normal Activity and May Shower May shower in (days): 1 Ice area for (Minutes): 30 Lifting Restrictions: No lifting pushing or pulling more than 20 pounds for 6 weeks Additional Activity Instructions:: Wear abdominal binder for comfort Dressing / Incision Call your doctor if your incision/area has: Continuous Slow Oozing, Sudden Increased Bleeding, Increased Pain/ Swelling, Increased Redness, Foul Smelling Discharge and Swelling at the incision site Call your doctor if you observe: Fever of 101 or Higher Cleanse incision/area with: Soap & Water Follow Up Care Please Follow Up With: Ptarick Sarmiento MD When: 2 weeks. Please call office to schedule appointment Test Results: Test results from this visit will be discussed in further detail at your follow- up appointment, if applicable. Discharge Plan Admission Primary Reason for Your Visit: Umbilical hernia repair Attending Provider: Patrick Sarmiento Primary Care Provider: Damaso Adan Instructions Print Language: Hungarian Discharge Orders/Prescriptions Prescriptions: New oxycodone 5 mg tablet 5 mg PO Q8H PRN (Reason: pain) 4 Days Qty: 10 0RF Continued vitamin B complex Tablet 1 tab PO QWEEK aspirin 81 mg tablet 81 mg PO .qod Referrals / Follow Up: Damaso Adan MD [Primary Care Provider] - Disposition Disposition (needs filled in before D/C Order can be placed): Home, Self Care
[2025-04-15] MEDS: Bupiv/Epi 0.25% 30 ML Vial (08:18)
--- NOTE | 2025-04-15 08:19 | OP.PCM_ITS ---
Problems Associated Problem List Diagnoses (1) Umbilical hernia: Procedures Digestive 40xxx-49xxx: [id number] RPR AA HRN 1ST < 3 CM [facility] Operative Report (Standard) Operative Information Date of Procedure: 04/15/25 Pre-Operative Diagnosis: Umbilical hernia Post-Operative Diagnosis: Umbilical hernia Surgery/Procedure Performed: Open umbilical hernia repair food order delivery runner: Yes Bedspread Seamer: Katherin Argueta Tasks completed by assistant professor of forestry: Closing and Retracting Additional orthotics prosthetics assistant?: No Type of Anesthesia: General and Local RN Documented Start/Stop Times: Operation Date: 04/15/25 07:30 Case Time Into Pre-Op 04/15/25 05:55 Out of Pre-Op 04/15/25 07:35 Anesthesia Start 04/15/25 07:36 Into Room 04/15/25 07:36 Procedure Start 04/15/25 07:53 Procedure End 04/15/25 08:23 Anesthesia End 04/15/25 08:25 Out of Room 04/15/25 08:25 Into Recovery 04/15/25 08:27 Procedure Start Time: 07:53 Procedure Stop Time: 08:23 Select all DRAINS/GRAFTS/IMPLANTS that apply: None Special Medications: 2 g Ancef IV preop Estimated Blood Loss: Minimal Specimen collected: No Description of surgery: The patient is a 69-year-old male who was recently seen through the office with an umbilical hernia. This was fat-containing and was not completely reducible which made determining fascial defect size difficult. I offered him umbilical hernia repair surgery with the possibility of mesh. We discussed the details of the planned procedure including risk benefits and alternatives. He wished to proceed. He was brought to the op room today following informed consent. Preoperative antibiotics were given and a timeout was performed. He was placed supine on the operative table with arms outstretched and arm boards. General endotracheal anesthesia was induced. Once adequately anesthetized the abdomen was then pr epped and draped in the usual sterile manner. Local anesthetic was injected in the region of the umbilicus. A curvilinear incision was made around the superior aspect of the umbilicus. Bovie electrocautery was then used dissect down through subcutaneous tissues down to the level of fascia. The skin of the umbilicus was dissected off of the underlying hernia sac with the aid of a Leslee clamp and a #15 blade. The hernia sac and contents were then excised. The fascial edges were cleared. The fascial defect was 1 cm in diameter. Based on the size, mesh was not required. To close the fascial defect 0 Nurolon was placed in interrupted manner to close the fascia. Once tied down the fascia reapproximated nicely. Next the skin of the umbilicus was affixed to the underlying fascia using 2-0 Vicryl. 2-0 Vicryl was also used to reapproximate the subdermal layer. 4-0 Vicryl was then used to close the skin. Skin glue was applied as dressing along with a 2 x 2 gauze dressing as well as an abdominal binder. The patient was awakened by anesthesia and taken recovery in good condition. Surgical Findings: 1 cm fascial defect; fat-containing umbilical hernia Complications Complications: No Admit VTE Documentation VTE Present on Admission: Yes VTE Mechan Device Prophylaxis: SCD's VTE Pharm Prophylaxis ordered?: No Reason prophylaxis not ordered: Treatment Not Indicated
--- NOTE | 2025-04-15 08:31 | PCM.POST.ANE ---
Anesthesia: Postop Eval I Current Vital Signs Temperature: 97.8 F Pulse Rate: 93 Blood Pressure: 127/78 Respiratory Rate: 20 Pulse Ox: 95 Oxygen Delivery Method: Room Air Assessment Airway patent: Yes Spontaneous unlabored respirations: Yes Mental status: Awake and Calm nausea: No Vomiting: No Anesthesia Complication: No Fluid Hydration Crystalloid volume administer (ml): 700 Total IV fluid infused: 700 Progress Note Anesthesia document: Postop Eval 1 completed: Yes
--- NOTE | 2025-04-15 19:10 | POSTOPAN2_ITS ---
Anesthesia Postop Eval I Sum Postop Eval Completion status Anesthesia document: Postop Eval 1 completed: Yes Anesthesia Postop Eval I Summary Anesthesia Postop Eval I Summary: Anesthesia Postop Eval I: Assessment Summary Airway patent Yes 04/15/25 08:32 [employer]ODUCT DEVELOPMENT [email or web address].[email or web address] Spontaneous unlabored Yes 04/15/25 08:32 [employer] DEVELOP[employer].[email or web address] respirations Mental status Awake,Calm 04/15/25 08:32 [employer] DEVEL[employer]MENT ACTU[employer].[email or web address] nausea No 04/15/25 08:32 [employer] DEVEL[employer]MENT [employer].[email or web address] Vomiting No 04/15/25 08:32 [employer]ODUCT DEVELOPMENT ACTU[employer].[email or web address] Anesthesia Postop Eval I: Fluid Summary Crystalloid volume administer 700 04/15/25 08:32 [employer]ODUCT DEVELOPMENT ACTUARY.[email or web address] (ml) Colloids volume administered ( ml) Blood Product volume administered (ml) Total IV fluid infused 700 04/15/25 08:32 [employer]ODUCT DEVELOPMENT ACTU[employer].[email or web address] Anesthesia Postop Eval I: Summary Notes Anesthesia Complication No 04/15/25 08:32 [employer]ODUCT DEVELOPMENT ACTUARY.[email or web address] Anesthesia Complication Comment: Post-operative progress note Anesthesia: Postop Eval II Evaluation Mental status: Awake Pain Level: 2 nausea: No Vomiting: No
--- NOTE | 2025-04-15 19:10 | PCM.POSTANE2 ---
Anesthesia Postop Eval I Sum Postop Eval Completion status Anesthesia document: Postop Eval 1 completed: Yes Anesthesia Postop Eval I Summary Anesthesia Postop Eval I Summary: Anesthesia Postop Eval I: Assessment Summary Airway patent Yes 04/15/25 08:32 PRINTING [email or web address] Spontaneous unlabored Yes 04/15/25 08:32 PRINTING MACHINIST.[email or web address] respirations Mental status Awake,Calm 04/15/25 08:32 PRINTING [email or web address].[email or web address] nausea No 04/15/25 08:32 PRINTING MACHINIST.[email or web address] Vomiting No 04/15/25 08:32 PRINTING [email or web address].[email or web address] Anesthesia Postop Eval I: Fluid Summary Crystalloid volume administer 700 04/15/25 08:32 PRINTING [email or web address].[email or web address] (ml) Colloids volume administered ( ml) Blood Product volume administered (ml) Total IV fluid infused 700 04/15/25 08:32 PRINTING [email or web address].[email or web address] Anesthesia Postop Eval I: Summary Notes Anesthesia Complication No 04/15/25 08:32 PRINTING [email or web address].[email or web address] Anesthesia Complication Comment: Post-operative progress note Anesthesia: Postop Eval II Evaluation Mental status: Awake Pain Level: 2 nausea: No Vomiting: No
== END 2025-04-15 09:22 | disposition home or self-care (01) ==
LOC: SDC 05:51 → AC 05:58
PROVIDERS: Anesthesiology; PCP Family Medicine; Referring Provider Surgery; Visit Provider Surgery
PROC: (CPT 49591; principal; 2025-04-15 07:15)
DX: K42.9 Umbilical hernia without obstruction or gangrene (principal); F17.210 Nicotine dependence, cigarettes, uncomplicated
CPT/HCPCS: 49591; 00750; 36415; 85027; 93005; J2405